=== PATIENT | male | born 1965 | race Caucasian/White ===

== ENCOUNTER 2017-11-06 04:25 | Emergency (ER) | payer SELFPAY ==
[~2017-11-06] VITALS: Ht 180.3 cm; Wt 88.0 kg
[2017-11-06 04:35] VITALS: BP 116/71
[2017-11-06] MEDS ORDERED: QUET100T4 PO (04:43)
== END 2017-11-06 05:49 | disposition home or self-care (01) ==
LOC: ED 05:00
DX: R60.9 Edema, unspecified (principal)
CPT/HCPCS: 99283